=== PATIENT | male | born 1965 | race Caucasian/White ===

== ENCOUNTER 2018-02-16 11:15 | Emergency (ER) | payer BC ==
[~2018-02-16] VITALS: Ht 175.3 cm; Wt 105.0 kg
[2018-02-16 11:20] VITALS: BP 142/91
== END 2018-02-16 12:45 | disposition home or self-care (01) ==
LOC: ED 12:30
DX: J00 Acute nasopharyngitis [common cold] (principal); I10 Essential (primary) hypertension; F17.200 Nicotine dependence, unspecified, uncomplicated
CPT/HCPCS: 71046; 99284